=== PATIENT | female | born 1935 | race Caucasian/White ===

== ENCOUNTER 2017-01-21 06:24 | Inpatient (IN) | payer OTHER ==
[2016-12-27 14:06] LABS: BASO % 0.5 %; BASO ABS # 0.04 K/uL (0-0.2); COMPLETE YES; HEMATOCRIT 43.3 % (37-47); IG% 0.1 %; LYMPH % 25.7 %; LYMPH ABS # 1.87 K/uL (1.2-3.4); MEAN CELL VOLUME 93.7 fL (80-100); MEAN CORPUSCULAR HEMOGLOBIN 30.1 pg (25-34); MEAN CORPUSCULAR HGB CONC 32.1 g/dl (32-36); MEAN PLATELET VOLUME 8.6 fL (7.4-10.4); MONO % 5.4 %; NEUT % 65.3 %; PLATELET COUNT 244 K/uL (130-400); RED BLOOD COUNT 4.62 M/uL (4.2-5.4); WHITE BLOOD COUNT 7.28 K/uL (4.8-10.8)
[2016-12-27 14:19] VITALS: BMI 23.0
[2016-12-27 14:28] LABS: INR 1.9 (0.9-1.1); PARTIAL THROMBOPLASTIN RATIO 1.4; PROTHROMBIN TIME (PATIENT) 21.4 SECONDS (9.0-12.0)
--- NOTE | 2016-12-27 14:58 | PAT Medication Instructions ---
Service Date Dec 27, 2016. Current Home Medication List Amiodarone Hcl (Cordarone), 200 MG PO QAM Ascorbic Acid (Vitamin C), 1,000 MG PO BID Aspirin (Aspirin Ec), 81 MG PO QAM Bioflavonoid Products (Vitamin C Plus) Brimonidine Tartrate (Alphagan P Oph), 1 DROP OP BID Carvedilol (Coreg), 6.25 MG PO HS Cetirizine (Zyrtec), 10 MG PO QAM Cholecalciferol (Vitamin D3), 1 TAB PO QAM Ciprofloxacin Tab (Cipro), 250 MG PO BID PRN for UD Dorzolamide Hcl (Trusopt Oph), 1 DROPS OP BID Fentanyl (Duragesic), 1.5 TOP Q3DAYS Furosemide (Lasix), 80 MG PO QAM Furosemide (Lasix), 40 MG PO QPM Home O2 Therapy (Oxygen), 3 LITERS NA HS Ipratropium-Albuterol (Combivent Respimat), 1 PUFFS INH PRN Lactobacillus-Inulin (Culturelle), 1 TAB PO QAM Latanoprost (Xalatan 0.005% Oph Kaci), 1 DROPS OP HS Levothyroxine Sodium (Synthroid), 150 MCG PO QAM Nitroglycerin (Nitrostat), 0.4 MG UT PRN Oxycodone/Acetaminophen 7.5MG/325MG (Percocet 7.5MG/325MG), 1 TAB PO BID PRN for N Prednisone (Prednisone), 10 MG PO UD PRN for RN Warfarin Sodium (Coumadin), 5 MG PO 4XWEEK Warfarin Sodium (Coumadin), 2.5 MG PO 3XWEEK [Albuterol Neb], 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 Instructions For Your Scheduled Surgery - Continue as directed: Fentanyl (Duragesic), 1.5 TOP Q3DAYS - Continue as directed: Nitroglycerin (Nitrostat), 0.4 MG UT PRN Ciprofloxacin Tab (Cipro), 250 MG PO BID PRN for UD Prednisone (Prednisone), 10 MG PO UD PRN for RN - Hold the following medications 5 days prior to surgery as instructed by Cardiology: Warfarin Sodium (Coumadin), 5 MG PO 4XWEEK Warfarin Sodium (Coumadin), 2.5 MG PO 3XWEEK - Hold the following medications the morning of surgery: Cetirizine (Zyrtec), 10 MG PO QAM Ascorbic Acid (Vitamin C), 1,000 MG PO BID Lactobacillus-Inulin (Culturelle), 1 TAB PO QAM Cholecalciferol (Vitamin D3), 1 TAB PO QAM Furosemide (Lasix), 80 MG PO QAM Bioflavonoid Products (Vitamin C Plus) - Take the following medications the morning of surgery with a sip of water OTHERWISE NOTHING TO EAT OR DRINK AFTER MIDNIGHT: Aspirin (Aspirin Ec), 81 MG PO QAM Dorzolamide Hcl (Trusopt Oph), 1 DROPS OP BID Brimonidine Tartrate (Alphagan P Oph), 1 DROP OP BID Amiodarone Hcl (Cordarone), 200 MG PO QAM [Albuterol Neb], 1 DOSE INH QID PRN (use if needed; BRING TO HOSPITAL) Oxycodone/Acetaminophen 7.5MG/325MG (Percocet 7.5MG/325MG), 1 TAB PO BID PRN ( may take if needed up to 4 hours prior to surgery) Ipratropium-Albuterol (Combivent Respimat), 1 PUFFS INH PRN Levothyroxine Sodium (Synthroid), 150 MCG PO QAM - Take the following medications as scheduled the night before surgery: Latanoprost (Xalatan 0.005% Oph Kaci), 1 DROPS OP HS Carvedilol (Coreg), 6.25 MG PO HS Ascorbic Acid (Vitamin C), 1,000 MG PO BID Dorzolamide Hcl (Trusopt Oph), 1 DROPS OP BID Furosemide (Lasix), 40 MG PO QPM Brimonidine Tartrate (Alphagan P Oph), 1 DROP OP BID [Albuterol Neb], 1 DOSE INH QID PRN Oxycodone/Acetaminophen 7.5MG/325MG (Percocet 7.5MG/325MG), 1 TAB PO BID PRN for N Ipratropium-Albuterol (Combivent Respimat), 1 PUFFS INH PRN If you have any questions please call us at [phone] or [phone] or [phone]
[2016-12-27 15:08] LABS: BUN/CREATININE RATIO 14.5 (10-20); C-REACTIVE PROTEIN 0.41 mg/dl (0-0.29); CALCIUM 9.1 mg/dl (8.5-10.1); CREATININE 0.92 mg/dl (0.60-1.20); POTASSIUM 3.6 mmol/L (3.5-5.1)
--- NOTE | 2017-01-16 09:47 | History and Physical ---
History & Physical Date Jan 16, 2017. Chief Complaint Right Hip Pain. History of Present Illness The patient is a 81 year old female with complaints of right hip pain. Started after a fall 3 years ago. She has a non-displaced [place] fracture treated elsewhere. Despite tx, continues to have persistant and progressive pain. She never got off the cane. Mostly groin pain. She was scheduled for THR in past but cancelled due to illness. She would now like to proceed. Past Medical/Surgical History 1. Heart murmur 2. HTN 3. Cardiac stent placement - on coumadin 4. COPD 5. Hx of Pneumonia 6. LBP/Sciatica 7. Hypothyroidism 8. Smoking history 9. Cataract Susrgery 10.Choly 11.Hernia 12. Abdominal Surgery Additional History Hepatic Disease: No Endocrine Disorder: No Kidney Disease: No Hypertension: Yes Heart Disease: Yes Bleeding Tendencies: No Infectious Diseases: No Allergies Coded Allergies: Benazepril (Unverified Allergy, Unknown, HEADACHE,LOW BP, 12/27/16) Enalapril (Unverified Allergy, Unknown, DIZZY LOW BP, 12/27/16) Levofloxacin (Unverified Allergy, Unknown, MISCLE ACHES, 12/27/16) Lisinopril (Unverified Allergy, Unknown, BP GOES TOO LOW, 12/27/16) Statins (Unverified Allergy, Unknown, MUSCLE ACHES, 12/27/16) Home Medications Scheduled Amiodarone Hcl (Cordarone), 200 MG PO QAM Ascorbic Acid (Vitamin C), 1,000 MG PO BID Aspirin (Aspirin Ec), 81 MG PO QAM Brimonidine Tartrate (Alphagan P Oph), 1 DROP OP BID Carvedilol (Coreg), 6.25 MG PO HS Cetirizine (Zyrtec), 10 MG PO QAM Cholecalciferol (Vitamin D3), 1 TAB PO QAM Dorzolamide Hcl (Trusopt Oph), 1 DROPS OP BID Fentanyl (Duragesic), 1.5 TOP Q3DAYS Furosemide (Lasix), 80 MG PO QAM Furosemide (Lasix), 40 MG PO QPM Home O2 Therapy (Oxygen), 3 LITERS NA HS Ipratropium-Albuterol (Combivent Respimat), 1 PUFFS INH PRN Lactobacillus-Inulin (Culturelle), 1 TAB PO QAM Latanoprost (Xalatan 0.005% Oph Kaci), 1 DROPS OP HS Levothyroxine Sodium (Synthroid), 150 MCG PO QAM Nitroglycerin (Nitrostat), 0.4 MG UT PRN Warfarin Sodium (Coumadin), 5 MG PO 4XWEEK Warfarin Sodium (Coumadin), 2.5 MG PO 3XWEEK Scheduled PRN Ciprofloxacin Tab (Cipro), 250 MG PO BID PRN for UD Oxycodone/Acetaminophen 7.5MG/325MG (Percocet 7.5MG/325MG), 1 TAB PO BID PRN for N Prednisone (Prednisone), 10 MG PO UD PRN for RN [Albuterol Neb], 1 DOSE INH QID PRN for RN Miscellaneous Medications Bioflavonoid Products (Vitamin C Plus) Physical Examination Skin: warm/dry Eyes: normal inspection ENT: normal ENT inspection Head: normocephalic, atraumatic Neck: supple, no adenopathy Respiratory/Chest: lungs clear Cardiovascular: regular rate, rhythm Abdomen / GI: normal bowel sounds Back: normal inspection Extremities: normal inspection Neurologic/Psych: no motor/sensory deficits Addiitonal Comments: x-ray - Advanced Right HIp DJD Plan of Treatment Right THR
[~2017-01-21] VITALS: Ht 154.9 cm; Wt 56.3 kg
[2017-01-21] VITALS (17 sets, daily range): BP systolic 99–188; BP diastolic 53–81; PULSE 56–66; TEMP 36.4–36.9; O2SAT 92–99; Ht 154.9 cm; Wt 56.3 kg
[~2017-01-21 06:24] MED LIST: ACETAMINOPHEN 500 MG TAB PO SCH; ALBUTEROL NEB INH; AMIO200T4 PO; ASCA500 PO; ASPI81TA28 PO; BIOFTAB23; BRIM0.1S OP; CARV6.252 PO; CEFAZOLIN 2000 MG/60 ML D5W 60 ML IV SCH; CETI10TA84 PO; CHOL1000 PO; CIPR1TAB11 PO; DORZ2SOL17 OP; FAMOTIDINE 20 MG TAB PO SCH; FENT25DI10 TOP; FRS/40 PO; FURO80TA63 PO; GABAPENTIN 300 MG CAP PO SCH; IPRA1AER2 INH; LACT10CA3 PO; LACTATED RINGER'S 1000ML 1,000 ML IV SCH; LACTATED RINGER'S 1000ML IV SCH; LATA0.009 OP; LEVO150T PO; METOCLOPRAMIDE HCL 10 MG TAB PO SCH; NTRGSL/4 UT; OXGN; OXYC7.5T65 PO; PRED10TA PO; SCOPOLAMINE 1.5 MG TDSY TD SCH; TRANEXAMIC ACID INJ 1,000 MG in SODIUM CHLORIDE 0.9% 100ML 100 ML IV SCH; WARF5TAB90 PO
--- NOTE | 2017-01-21 06:51 | History & Physical Bridge Note ---
H&P Re-Evaluation Bridge Note: I have examined the patient, reviewed the History & Physical and in the interval since the performance of the History & Physical I have noted the following changes of clinical significance: No changes noted
[2017-01-21 07:08] LABS: INR 1.1 (0.9-1.1); PARTIAL THROMBOPLASTIN RATIO 1.1; PROTHROMBIN TIME (PATIENT) 11.4 SECONDS (9.0-12.0)
[2017-01-21] MEDS ORDERED: BUPIVACAINE 0.5 % 5 MG/1 ML PF 10ML VIAL ONE (07:14)
[2017-01-21] MEDS ORDERED: OXYC-57 PO (07:19)
[2017-01-21] MEDS ORDERED: PROPOFOL IV EMULSION 10 MG/ML 20 ML VIAL IV ONE (07:35)
[2017-01-21] MEDS ORDERED: MIDAZOLAM HCL 1 MG/ML 2ML VIAL ONE (07:35)
[2017-01-21] MEDS ORDERED: FENTANYL CITRATE INJ 50 MCG/1 ML 2 ML VIAL ONE (07:35)
[2017-01-21] MEDS ORDERED: MoRPHine SULFATE PF 1 MG/ML 10 ML AMP/VIAL ONE (08:29)
[2017-01-21] MEDS ORDERED: BACITRACIN 50000 UNIT VIAL ONE (08:59)
[2017-01-21] MEDS ORDERED: BUPIVACAINE/EPINEPHRINE 0.5% MPF 1:200,000 10 ML VIAL ONE (09:00)
[2017-01-21] MEDS ORDERED: EpHEDrine SULFATE 50MG/5ML SYR ONE (09:45)
[2017-01-21] MEDS ORDERED: ONDANSETRON INJ 2 MG/ML 2 ML VIAL ONE (09:45)
--- NOTE | 2017-01-21 11:02 | [facility] Post Operative Brief Note ---
Immediate Operative Summary Operative Date Jan 21, 2017. Pre-Operative Diagnosis Right Hip Advanced Degenerative Joint Disease Post-Operative Diagnosis Right Hip Advanced Degenerative Joint Disease Procedure(s) Performed Right Total Hip Arthroplasty--Cemented Stem Surgeon Dr. Eisenberg Enforcement Manager Surgeon(s) RASHAUN Valderrama Estimated Blood Loss 300 cc Findings Right Hip DJD Fluids (cc crystalloids) 1200 cc Specimens A. Right Femoral Head Drains None Anesthesia Spinal Complication(s) None Disposition Recovery Room / PACU
[2017-01-21] MEDS ORDERED: ATROPINE SULFATE 0.1 MG/ML 5ML SYR IV PRN (11:15)
[2017-01-21] MEDS ORDERED: BISACODYL 10 MG SUPP PR PRN (11:15)
[2017-01-21] MEDS ORDERED: NITROGLYCERIN 0.4 MG SL PER TAB CHARGE UT SCH (11:15)
[2017-01-21] MEDS ORDERED: ALUMINUM/MAGNESIUM/SIMETH (MAALOX MAX) 30 ML UDC PO PRN (11:15)
[2017-01-21] MEDS ORDERED: ONDANSETRON INJ 2 MG/ML 2 ML VIAL IV PRN ×2 (11:15→12:00)
[2017-01-21] MEDS ORDERED: ALBUTEROL 0.5% NEB SOLN 2.5 MG/0.5 ML VIAL INH PRN (11:15)
[2017-01-21] MEDS ORDERED: SILVER SULFADIAZINE 1% CR 50 GM JAR EXT PRN (11:15)
[2017-01-21] MEDS ORDERED: HYDROmorphone INJ 2 MG/ML SYR/VIAL IV PRN (11:15)
[2017-01-21] MEDS ORDERED: MAGNESIUM HYDROXIDE SUSP 30 ML UDC PO PRN (11:15)
[2017-01-21] MEDS ORDERED: PHENYLEPHRINE 100MCG/ML 5ML SYR IV PRN (11:15)
[2017-01-21] MEDS ORDERED: IPRATROPIUM BROMIDE/ALBUTEROL respimat INH INH PRN ×2 (11:15→21:00)
[2017-01-21] MEDS ORDERED: EpHEDrine SULFATE INJ 50 MG/ML AMP IV PRN ×2 (11:15→12:00)
[2017-01-21] MEDS ORDERED: NALOXONE HCL INJ 1 MG in SODIUM CHLORIDE 0.9% 1000ML 1,000 ML IV PRN (11:59)
[2017-01-21] MEDS ORDERED: LACTATED RINGER'S 1000ML 500 ML IV PRN (11:59)
[2017-01-21] MEDS ORDERED: SODIUM CHLORIDE 0.9% 1000ML 1,000 ML IV PRN (11:59)
[2017-01-21] MEDS ORDERED: NALOXONE HCL INJ 0.08 MG in SYRINGE 1.8 ML IV PRN (11:59)
[2017-01-21] MEDS ORDERED: MoRPHine SULFATE 2 MG/ML CARP IV PRN (12:00)
[2017-01-21] MEDS ORDERED: KETOROLAC TROMETHAMINE 15 MG/ML VIAL IV. PRN (12:00)
[2017-01-21] MEDS ORDERED: NALOXONE HCL 0.4 MG/1 ML VIAL/CARP IV PRN (12:00)
[2017-01-21] MEDS ORDERED: DiphenhydrAMINE HCL 50 MG/ML VIAL IV PRN (12:00)
[2017-01-21] MEDS ORDERED: NALBUPHINE HCL INJ 10 MG/ML AMP IV PRN (12:00)
[2017-01-21] MEDS ORDERED: NO NARCOTICS OR SEDATIVES SCH (12:00)
[2017-01-21] MEDS ORDERED: MoRPHine SULFATE PF 1 MG/ML 10 ML AMP/VIAL EPI PRN (12:00)
--- NOTE | 2017-01-21 12:01 | Anesthesiology Progress Note ---
Anesthesia Post Op Note Date & Time Jan 21, 2017 at 12:01 Vital Signs Pain Intensity: 0 Vital Signs Past 12 Hours Date Time Temp Pulse Resp B/P (MAP) Pulse Ox O2 Delivery O2 Flow Rate FiO2 01/21/17 11:53 55 13 01/21/17 11:53 55 13 94 01/21/17 11:51 135/60 01/21/17 11:48 57 14 01/21/17 11:48 58 14 93 01/21/17 11:47 131/62 01/21/17 11:44 36.9 56 18 131/62 (70) 94 Nasal Cannula 3 01/21/17 11:43 58 18 93 01/21/17 11:43 57 18 01/21/17 11:42 143/60 01/21/17 11:38 58 13 01/21/17 11:38 58 13 93 01/21/17 11:37 141/64 01/21/17 11:33 59 16 92 01/21/17 11:33 59 16 01/21/17 11:32 137/59 01/21/17 11:31 56 16 01/21/17 11:31 56 16 93 01/21/17 11:26 59 15 142/64 94 01/21/17 11:26 58 15 01/21/17 11:22 130/62 01/21/17 11:21 55 16 97 01/21/17 11:21 55 16 01/21/17 11:16 57 15 01/21/17 11:16 57 15 137/62 98 01/21/17 11:11 56 14 01/21/17 11:11 56 14 135/62 100 01/21/17 11:07 133/58 01/21/17 11:06 55 14 01/21/17 11:06 55 14 99 01/21/17 11:03 132/59 01/21/17 11:01 36.3 55 14 132/59 (74) 99 Nasal Cannula 10 01/21/17 07:15 36.6 66 18 188/81 96 Room Air Notes Mental Status: alert / awake / arousable, participated in evaluation Pt Amnestic to Procedure: Yes Nausea / Vomiting: adequately controlled Pain: adequately controlled Airway Patency, RR, SpO2: stable & adequate BP & HR: stable & adequate Hydration State: stable & adequate Anesthetic Complications: no major complications apparent
--- NOTE | 2017-01-21 12:03 | DIAGNOSTIC IMAGING REPORT ---
RIGHT PELVIS/UNILATERAL HIP 1 VIEW CLINICAL HISTORY: IN PACU - A/P PELVIS and LATERAL HIP INCLUDING ALL OF IMPLANT Right COMPARISON: None. DISCUSSION: Anatomic alignment status post total right hip arthroplasty. Good contact between prosthetic and underlying bone. No evidence for acetabular protrusion. Old fracture symphysis pubis. IMPRESSION: Anatomic alignment status post total right hip arthroplasty. The above report was generated using voice recognition software. It may contain grammatical, syntax or spelling errors. Electronically signed by: Branden Roach M.D. 01/21/2017 12:02 PM Dictated Date/Time: 01/21/2017 12:01 PM
--- NOTE | 2017-01-21 13:48 | Progress Note ---
Orthopedic SOAP Note Subjective Date of Service: Jan 21, 2017. Post OP Day: Post-op Right THR Reports: feeling well, pain controlled w PO medications Additional Notes: No pain. No chest Pain or SOB. Very hungry. Objective calves soft nontender, N/V intact, hip located, capillary refill less than 2 sec., dressing C/D/I, A&O x3, toes mobile, CMS intact Date Time Temp Pulse Resp B/P (MAP) Pulse Ox O2 Delivery O2 Flow Rate FiO2 01/21/17 13:30 36.9 63 18 142/75 (97) 99 Nasal Cannula 3.0 Humidified Oxygen 01/21/17 13:00 58 18 130/60 (83) 95 Nasal Cannula 3.0 Humidified Oxygen 01/21/17 12:30 36.8 56 16 129/60 (83) 97 Nasal Cannula 3.0 01/21/17 12:30 97 Nasal Cannula 3.0 01/21/17 12:30 Nasal Cannula 3.0 Humidified Oxygen 01/21/17 12:12 131/62 01/21/17 12:09 54 14 01/21/17 12:09 55 14 94 01/21/17 12:06 125/57 01/21/17 12:04 53 13 01/21/17 12:04 54 13 95 01/21/17 12:02 137/58 01/21/17 11:59 56 16 01/21/17 11:59 56 16 97 01/21/17 11:56 128/59 01/21/17 11:54 58 17 93 01/21/17 11:54 57 17 01/21/17 11:53 55 13 01/21/17 11:53 55 13 94 01/21/17 11:51 135/60 01/21/17 11:48 57 14 01/21/17 11:48 58 14 93 01/21/17 11:47 131/62 01/21/17 11:44 36.9 56 18 131/62 (70) 94 Nasal Cannula 3 01/21/17 11:43 58 18 93 01/21/17 11:43 57 18 01/21/17 11:42 143/60 01/21/17 11:38 58 13 01/21/17 11:38 58 13 93 01/21/17 11:37 141/64 01/21/17 11:33 59 16 92 01/21/17 11:33 59 16 01/21/17 11:32 137/59 01/21/17 11:31 56 16 01/21/17 11:31 56 16 93 01/21/17 11:26 59 15 142/64 94 01/21/17 11:26 58 15 01/21/17 11:22 130/62 01/21/17 11:21 55 16 97 01/21/17 11:21 55 16 01/21/17 11:16 57 15 01/21/17 11:16 57 15 137/62 98 01/21/17 11:11 56 14 01/21/17 11:11 56 14 135/62 100 01/21/17 11:07 133/58 01/21/17 11:06 55 14 01/21/17 11:06 55 14 99 01/21/17 11:03 132/59 01/21/17 11:01 36.3 55 14 132/59 (74) 99 Nasal Cannula 10 01/21/17 07:15 36.6 66 18 188/81 96 Room Air Laboratory Results 24 Hours: Test 01/21/17 06:48 Prothromb Time International Ratio 1.1 Prothrombin Time 11.4 SECONDS Additional Notes: X-ray from recovery room shows THR in good position. No problems. Assessment Pos-op from RIght THR. Hip located, pain controlled, and N/V intact. Plan 1) DVT prophylaxis - TEDs + SCDs + Coumadin 2. IV antibiotics x 24 hours. 3) Pain control - doing well with current regimine 4) PT/OT - Right THR protocol 5) Disposition - hoping to go to [facility] for Rehab once recovered.
[2017-01-21] MEDS: D5W AND 1/2NSS + 20MEQ KCL 1,000 ML IV SCH ×2 (14:28→23:34)
[2017-01-21] MEDS: HYDROCORTISONE IV 100 MG in SYRINGE 0 ML IV SCH ×2 (14:29→20:59)
[2017-01-21] MEDS ORDERED: ADVIN25/60 INH (14:55)
[2017-01-21] MEDS: CHECK SCOPOLAMINE PATCH PLACEMENT SCH ×2 (15:43→23:34)
[2017-01-21] MEDS ORDERED: WARFARIN SOD 7.5 MG TAB PO ONE (16:00)
[2017-01-21] MEDS: FUROSEMIDE 40 MG TAB PO SCH (17:09)
[2017-01-21] MEDS: FERROUS GLUCONATE 324 MG TAB PO SCH (17:09)
[2017-01-21] MEDS ORDERED: TRANEXAMIC ACID INJ 1,000 MG in SODIUM CHLORIDE 0.9% 100ML 100 ML IV ONE (17:30)
[2017-01-21] MEDS: FLUTICASONE/SALMETEROL 250/50 (ADVAIR) 14 PUFF/1 INHALER INH SCH (19:52)
[2017-01-21] MEDS: SENNA 8.6 MG TAB PO SCH (19:55)
[2017-01-21] MEDS: DOCUSATE SODIUM 100 MG CAP PO SCH (19:55)
[2017-01-21] MEDS: CARVEDILOL 6.25 MG TAB PO SCH (19:55)
[2017-01-21] MEDS: DORZOLAMIDE HCL 2% OPH SOLN 10 ML BTL OP SCH (19:57)
[2017-01-21] MEDS: BRIMONIDINE TARTRATE-P 0.15% 5 ML BTL OP SCH (19:57)
[2017-01-21] MEDS ORDERED: SPRIN INH (20:00)
[2017-01-21] MEDS: LATANOPROST 0.005% OP SOLN 2.5 ML BTL OP SCH (20:55)
[2017-01-21] MEDS: ASCORBIC ACID 500 MG TAB PO SCH (20:57)
[2017-01-21] MEDS: ACETAMINOPHEN 500 MG TAB PO SCH (20:58)
[2017-01-21] MEDS: CEFAZOLIN IV 1,000 MG in DEXTROSE 5% 50ML 50 ML IV SCH (20:59)
--- NOTE | 2017-01-21 22:17 | Medical Consult ---
Consultation Date of Consultation: Jan 21, 2017. Attending Physician: Jase Eisenberg M.D. Reason for Consultation: postop medical management History of Present Illness Patient seen and examined after undergoing R FLORENCIA by Dr. Eisenberg today. Patient reports she is doing well. She is eating lunch without issues. Denies any pain. She admits to chronic occasional productive cough which is unchanged from baseline. Denies dizziness, chest pain, SOB, N/V. Dickerson catheter is in place. Denies hx of VTE. Past Medical/Surgical History Medical Problems: (1) Back pain Status: Chronic (2) CAD (coronary artery disease) Status: Chronic (3) Chronic anticoagulation Status: Chronic (4) Chronic respiratory failure with hypoxia Status: Chronic (5) Chronic systolic CHF (congestive heart failure) Status: Chronic (6) COPD (chronic obstructive pulmonary disease) Status: Chronic (7) Dyslipidemia Permanent Comment: statin intolerance Status: Chronic (8) HTN (hypertension) Status: Chronic (9) Hypothyroidism Status: Chronic (10) Paroxysmal atrial fibrillation Status: Chronic (11) Tobacco abuse Status: Chronic Surgical Problems: (1) H/O inguinal hernia repair Status: Chronic (2) History of cataract surgery Status: Chronic (3) S/P appendectomy Status: Chronic (4) S/P coronary artery stent placement Status: Chronic (5) S/P laparoscopic cholecystectomy Status: Chronic (6) S/P right oophorectomy Status: Chronic (7) S/P tonsillectomy and adenoidectomy Status: Chronic Family History FH: CAD (coronary artery disease) MOTHER Hypertension MOTHER Social History Smoking Status: Current Every Day Smoker (1/2 ppd x 63 years) Alcohol Use: none Housing Status: lives alone Allergies Coded Allergies: Benazepril (Unverified Allergy, Unknown, HEADACHE,LOW BP, 01/21/17) Enalapril (Unverified Allergy, Unknown, DIZZY LOW BP, 01/21/17) Levofloxacin (Unverified Allergy, Unknown, MISCLE ACHES, 01/21/17) Lisinopril (Unverified Allergy, Unknown, BP GOES TOO LOW, 01/21/17) Statins (Unverified Allergy, Unknown, MUSCLE ACHES, 01/21/17) Home Medications Active Reported Spiriva Handihaler (Tiotropium [place]) 5 Puff/90 Mcg Aerp 1 Cap INH DAILY Advair Diskus 250/50 60 Dose (Fluticasone Prop/Salmeterol) 1 Ea Aerp 1 Puff INH BID Percocet 5MG/325MG (Oxycodone/Acetaminophen) Tab 1 Tab PO BID 30 Days PAIN Vitamin D3 (Cholecalciferol) 1,000 Unit Tab 1 Tab PO QAM 90 Days Nitrostat (Nitroglycerin) 0.4 Mg Tab 0.4 Mg UT PRN Aspirin Ec (Aspirin) 81 Mg Tab 81 Mg PO QAM Synthroid (Levothyroxine Sodium) 150 Mcg Tab 150 Mcg PO QAM Vitamin C (Ascorbic Acid) 500 Mg Tab 1,000 Mg PO BID Prednisone 10 Mg Tab 10 Mg PO UD PRN RESCUE KIT-PRN Cipro (Ciprofloxacin) 250 Mg Tab 250 Mg PO BID PRN RESCUE KIT PRN Lasix (Furosemide) 40 Mg Tab 40 Mg PO QPM Lasix (Furosemide) 80 Mg Tab 80 Mg PO QAM Coreg (Carvedilol) 6.25 Mg Tab 6.25 Mg PO HS Oxygen Gas 3 Liters NA HS PRN DURING DAY [Albuterol Neb] 1 Dose INH QID PRN Trusopt Oph (Dorzolamide Hcl) 2 % Kaci 1 Drops OP BID Alphagan P Oph (Brimonidine Tartrate) 0.1 % Kaci 1 Drop OP BID Xalatan 0.005% Oph Kaci (Latanoprost) 0.005 % Kaci 1 Drops OP HS 90 Days Cordarone (Amiodarone Hcl) 200 Mg Tab 200 Mg PO QAM Combivent Respimat (Ipratropium-Albuterol) 1 Aer Aer 1 Puffs INH QID PRN Coumadin (Warfarin Sodium) 5 Mg Tab 2.5 Mg PO 3XWEEK FridayDAY FRIDAYS Coumadin (Warfarin Sodium) 5 Mg Tab 5 Mg PO 4XWEEK FRIDAY,FRIDAY,Friday Current Inpatient Medications Current Inpatient Medications Medications (Trade) Dose Ordered Sig/Delaney Route Start Time Stop Time Status Last Admin Dose Admin Lactated Ringer's 1,000 ml @ 15 mls/hr Q24H IV 01/21/17 06:00 01/22/17 05:59 Lactated Ringer's 1,000 ml @ 60 mls/hr [id number] IV 01/21/17 06:00 01/21/17 22:39 01/21/17 07:31 60 MLS/HR Cefazolin Sodium 60 ml @ 100 mls/hr PREOP IV 01/21/17 06:00 01/21/17 18:00 Acetaminophen (Tylenol Tab) 1,000 mg PREOP PO 01/21/17 06:00 01/21/17 18:00 01/21/17 07:34 1,000 MG Famotidine (Pepcid Tab) 20 mg PREOP PO 01/21/17 06:00 01/21/17 18:00 01/21/17 07:33 20 MG Gabapentin (Neurontin Cap) 300 mg PREOP PO 01/21/17 06:00 01/21/17 18:00 01/21/17 07:31 300 MG Metoclopramide HCl (Reglan Tab) 10 mg PREOP PO 01/21/17 06:00 01/21/17 18:00 01/21/17 07:33 10 MG Miscellaneous (Remove Transderm-Scop Patch) 1 ea Q72H N/A 01/24/17 06:00 01/24/17 06:01 Miscellaneous Information (Check Scopolamine Patch Placement) 1 ea QS N/A 01/21/17 16:00 01/23/17 05:59 Hydromorphone HCl (Dilaudid Inj) 0.5 mg Q5M PRN IV 01/21/17 11:15 01/21/17 16:15 Ondansetron HCl (Zofran Inj) 4 mg ONE PRN IV 01/21/17 11:15 01/21/17 16:15 Ephedrine Sulfate (EpHEDrine SULFATE INJ) 5 mg Q5M PRN IV 01/21/17 11:15 01/21/17 16:15 Atropine Sulfate (Atropine Sulfate 0.1MG/Ml Inj) 0.5 mg Q1M PRN IV 01/21/17 11:15 01/21/17 16:15 Phenylephrine HCl (Arthur-Synephrine 500MCG/5ML Syr) 100 mcg Q5M PRN IV 01/21/17 11:15 01/21/17 16:15 Potassium Chloride/Dextrose/ Sod Cl 1,000 ml @ 100 mls/hr Q10H IV 01/21/17 14:00 01/22/17 13:59 01/21/17 14:28 100 MLS/HR Ketorolac Tromethamine (Toradol Inj) 15 mg Q6H IV. 01/22/17 04:00 01/23/17 22:01 Acetaminophen (Tylenol Tab) 1,000 mg Q8H PO 01/21/17 22:00 02/20/17 21:59 Magnesium Hydroxide (Milk Of Magnesia Susp) 30 ml Q6H PRN PO 01/21/17 11:15 02/20/17 11:14 Bisacodyl (Dulcolax Supp) 10 mg DAILY PRN DE 01/21/17 11:15 02/20/17 11:14 Senna (Senokot Tab) 17.2 mg HS PO 01/21/17 21:00 02/20/17 20:59 Docusate Sodium (coLACE CAP) 100 mg BID PO 01/21/17 21:00 02/20/17 20:59 Al Hydrox/Mg Hydrox/Simethicone (Maalox Max Susp) 15 ml Q4H PRN PO 01/21/17 11:15 02/20/17 11:14 Zolpidem Tartrate (Ambien Tab) 5 mg HSZ PRN PO 01/22/17 04:00 02/21/17 03:59 Multivitamins (Multivitamin Tab) 1 tab QAM PO 01/22/17 09:00 02/21/17 08:59 Ondansetron HCl (Zofran Inj) 4 mg Q6H PRN IV 01/22/17 04:00 02/21/17 03:59 Metoclopramide HCl (Reglan Inj) 10 mg Q6H PRN IV 01/22/17 04:00 02/21/17 03:59 Ferrous Gluconate (Ferrous Gluconate Tab) 324 mg TIDM PO 01/21/17 17:45 02/20/17 17:44 Pantoprazole Sodium (Protonix Tab) 40 mg QAM PO 01/22/17 09:00 02/21/17 08:59 Silver Sulfadiazine (Silvadene 1% Crm 50GM Jar) 1 appln BID PRN EXT 01/21/17 11:15 02/20/17 11:14 Tramadol HCl (Ultram Tab) 1 TABLET FOR PAIN RATING... Q4H PRN PO 01/22/17 04:00 02/21/17 03:59 Cefazolin Sodium 1000 mg/Dextrose 55 ml @ 100 mls/hr Q8H IV 01/21/17 22:00 01/22/17 06:32 Tranexamic Acid 1000 mg/Sodium Chloride 110 ml @ 660 mls/hr TODAY@1730 ONCE IV 01/21/17 17:30 01/21/17 17:39 Hydromorphone HCl (Dilaudid Inj) 0.5 mg Q1H PRN IV 01/22/17 04:00 02/05/17 03:59 Hydrocortisone Sodium Succinate 100 mg/Syringe 2 ml @ 4 mls/min Q8H IV 01/21/17 14:00 01/22/17 06:01 01/21/17 14:29 4 MLS/MIN Amiodarone HCl (Cordarone Tab) 200 mg QAM PO 01/22/17 09:00 02/21/17 08:59 Ascorbic Acid (Vitamin C Tab) 1,000 mg BID PO 01/21/17 21:00 02/20/17 20:59 Carvedilol (Coreg Tab) 6.25 mg HS PO 01/21/17 21:00 02/20/17 20:59 Cetirizine HCl (zyrTEC TAB) 10 mg QAM PO 01/22/17 09:00 02/21/17 08:59 Cholecalciferol (Vitamin D Tab) 1,000 inter.unit QAM PO 01/22/17 09:00 02/21/17 08:59 Dorzolamide HCl (Trusopt 2% Oph Soln) 1 drops BID OP 01/21/17 21:00 02/20/17 20:59 Furosemide (Lasix Tab) 40 mg DAILY@1700 PO 01/21/17 17:00 02/20/17 16:59 Furosemide (Lasix Tab) 80 mg QAM PO 01/22/17 09:00 02/21/17 08:59 Albuterol/ Ipratropium (Combivent Respimat Inh) 1 puffs DAILY PRN INH 01/21/17 11:15 02/20/17 11:14 Latanoprost (Xalatan Oph Soln) 1 drops HS OP 01/21/17 21:00 02/20/17 20:59 Levothyroxine Sodium (Synthroid Tab) 150 mcg DAILYBB PO 01/22/17 06:00 02/21/17 05:59 Nitroglycerin (Nitrostat Tab) 0.4 mg PRN UT 01/21/17 11:15 02/20/17 11:14 Prednisone (PredniSONE TAB) 10 mg DAILY PRN PO 01/21/17 11:15 02/20/17 11:14 Brimonidine Tartrate (Alphagan-P 0.15% Oph Soln) 1 drops BID OP 01/21/17 21:00 02/20/17 20:59 Albuterol Sulfate (Ventolin 0.5% 2.5MG/0.5ML Neb) 1 mg QIDR PRN INH 01/21/17 11:15 02/20/17 11:14 Warfarin Sodium (Coumadin Tab) 7.5 mg TODAY@1600 ONCE PO 01/21/17 16:00 01/21/17 16:01 Naloxone HCl (Narcan Inj) 0.1 mg UD PRN IV 01/21/17 12:00 01/22/17 04:00 Diphenhydramine HCl (Benadryl Inj) 25 mg Q6H PRN IV 01/21/17 12:00 01/22/17 04:00 Nalbuphine HCl (Nubain Inj) 5 mg Q10M PRN IV 01/21/17 12:00 01/22/17 04:00 Naloxone HCl 1 mg/ Sodium Chloride 1,002.5 ml @ 50 mls/hr Q20H3M PRN IV 01/21/17 11:59 01/22/17 04:00 Ondansetron HCl (Zofran Inj) 4 mg Q6H PRN IV 01/21/17 12:00 01/22/17 04:00 Ketorolac Tromethamine (Toradol Inj) 15 mg Q6H PRN IV. 01/21/17 12:00 01/22/17 04:00 Miscellaneous Information (Dc Intraspinal Morphine) 1 ea ONE N/A 01/22/17 04:00 01/22/17 04:01 Miscellaneous Information (No Narcotics Or Sedatives) 1 ea UD N/A 01/21/17 12:00 01/22/17 04:00 Naloxone HCl 0.08 mg/Syringe 2 ml @ 1 mls/min Q2M PRN IV 01/21/17 11:59 01/22/17 04:00 Morphine Sulfate (MoRPHine SULFATE INJ) 2 mg Q6H PRN IV 01/21/17 12:00 01/22/17 04:00 Lactated Ringer's 500 ml @ 999 mls/hr Q31M PRN IV 01/21/17 11:59 01/22/17 04:00 Ephedrine Sulfate (EpHEDrine SULFATE INJ) 10 mg Q5M PRN IV 01/21/17 12:00 01/22/17 04:00 Morphine Sulfate (Duramorph Pf Inj) TODAY PRN EPI 01/21/17 12:00 01/22/17 04:00 Sodium Chloride 1,000 ml @ 15 mls/hr Q24H PRN IV 01/21/17 11:59 01/22/17 04:00 Tiotropium [place] (Spiriva Handihaler Inhaler) 1 puff QAM INH 01/22/17 09:00 02/21/17 08:59 Salmeterol Xinafoate/ Fluticasone (Advair Diskus 250/50 Inh) 1 puff BID INH 01/21/17 21:00 02/20/17 20:59 Review of Systems Ten systems reviewed and negative except as noted in HPI. Physical Exam Date Time Temp Pulse Resp B/P (MAP) Pulse Ox O2 Delivery O2 Flow Rate FiO2 01/21/17 15:40 16 95 01/21/17 15:37 36.4 58 16 122/67 (85) 95 Humidified Oxygen 3.0 01/21/17 14:29 58 18 99/53 (68) 99 Nasal Cannula 3.0 Humidified Oxygen 01/21/17 14:28 18 99 01/21/17 13:30 36.9 63 18 142/75 (97) 99 Nasal Cannula 3.0 Humidified Oxygen 01/21/17 13:30 18 98 01/21/17 13:00 58 18 130/60 (83) 95 Nasal Cannula 3.0 Humidified Oxygen 01/21/17 12:30 36.8 56 16 129/60 (83) 97 Nasal Cannula 3.0 01/21/17 12:30 97 Nasal Cannula 3.0 01/21/17 12:30 Nasal Cannula 3.0 Humidified Oxygen 01/21/17 12:30 16 97 01/21/17 12:12 131/62 01/21/17 12:09 54 14 7/18/17 12:09 55 14 94 7/18/17 12:06 125/57 7/18/17 12:04 53 13 7/18/17 12:04 54 13 95 7/18/17 12:02 137/58 7/18/17 11:59 56 16 7/18/17 11:59 56 16 97 7/18/17 11:56 128/59 7/18/17 11:54 58 17 93 7/18/17 11:54 57 17 7/18/17 11:53 55 13 7/18/17 11:53 55 13 94 7/18/17 11:51 135/60 7/18/17 11:48 57 14 7/18/17 11:48 58 14 93 7/18/17 11:47 131/62 7/18/17 11:44 36.9 56 18 131/62 (70) 94 Nasal Cannula 3 718/17 11:43 58 18 93 7/18/17 11:43 57 18 7/18/17 11:42 143/60 7/18/17 11:38 58 13 7/18/17 11:38 58 13 93 7/18/17 11:37 141/64 7/18/17 11:33 59 16 92 7/18/17 11:33 59 16 7/18/17 11:32 137/59 7/18/17 11:31 56 16 7/18/17 11:31 56 16 93 7/18/17 11:26 59 15 142/64 94 7/18/17 11:26 58 15 7/18/17 11:22 130/62 7/18/17 11:21 55 16 97 7/18/17 11:21 55 16 7/18/17 11:16 57 15 7/18/17 11:16 57 15 137/62 98 7/18/17 11:11 56 14 7/18/17 11:11 56 14 135/62 100 7/18/17 11:07 133/58 7/18/17 11:06 55 14 7/18/17 11:06 55 14 99 7/18/17 11:03 132/59 7/18/17 11:01 36.3 55 14 132/59 (74) 99 Nasal Cannula 10 7/18/17 07:15 36.6 66 18 188/81 96 Room Air General Appearance: WD/WN, no apparent distress, + pertinent finding (pleasant alert 81 year old female, sitting up in bed eating lunch, son at bedside) Head: normocephalic, atraumatic Eyes: normal inspection ENT: hearing grossly normal Neck: supple, trachea midline Respiratory/Chest: lungs clear, normal breath sounds, no respiratory distress, no accessory muscle use Cardiovascular: regular rate, rhythm, no murmur Abdomen/GI: normal bowel sounds, non tender, soft Genitourinary - Female: + pertinent finding (dickerson catheter draining clear yellow urine) Extremities/Musculoskelatal: no calf tenderness, no pedal edema, + pertinent finding (dressing in place on right hip) Neurologic/Psych: alert, normal mood/affect, oriented x 3 Skin: normal color, warm/dry Laboratory Results Last 24 Hours Test 01/21/17 06:48 Prothrombin Time 11.4 SECONDS Prothromb Time International Ratio 1.1 Activated Partial Thromboplast Time 28.0 SECONDS Partial Thromboplastin Ratio 1.1 Assessment & Plan S/P RIGHT FLORENCIA POD #[address] Eisenberg Pain control, wound care, activity per ortho Monitor daily H/H for sign of acute blood loss anemia Incentive spirometry PT/OT PAROXYSMAL ATRIAL FIBRILLATION Currently in sinus rhythm Continue amiodarone and carvedilol Resume Coumadin when acceptable to ortho CHRONIC SYSTOLIC CHF Compensated Continue furosemide CAD S/P STENTING Stable, no anginal symptoms Continue aspirin and beta suly Statin intolerance noted COPD/ CHRONIC RESPIRATORY FAILURE Not in exacerbation Continue home inhalers Counselled about smoking cessation- patient not willing at this time DVT PROPHYLAXIS Per ortho DISPOSITION Per ortho Patient seen in collaboration with Dr. Hassan. Please see his addendum. Agree with above consult note. Briefly 81F is s/p right FLORENCIA. tolerated procedure ok. Denies chest pain or sob. No nausea. 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
[2017-01-22] VITALS (13 sets, daily range): BP systolic 106–159; BP diastolic 48–88; PULSE 52–67; TEMP 36.7–37.2; O2SAT 87–98
[2017-01-22] MEDS ORDERED: METOCLOPRAMIDE HCL INJ 5 MG/ML 2 ML VIAL IV PRN (04:00)
[2017-01-22] MEDS ORDERED: ONDANSETRON INJ 2 MG/ML 2 ML VIAL IV PRN (04:00)
[2017-01-22] MEDS ORDERED: HYDROmorphone INJ 0.5 MG/0.5 ML SYR IV PRN (04:00)
[2017-01-22] MEDS ORDERED: DC INTRASPINAL MORPHINE SCH (04:00)
[2017-01-22] MEDS ORDERED: ZOLPIDEM TARTRATE 5 MG TAB PO PRN (04:00)
[2017-01-22] MEDS: KETOROLAC TROMETHAMINE 15 MG/ML VIAL IV. SCH ×4 (04:21→21:31)
[2017-01-22] MEDS: TRAMADOL HCL 50 MG TAB PO PRN ×3 (04:37→21:27)
[2017-01-22 06:06] LABS: BASO % 0.2 %; BASO ABS # 0.02 K/uL (0-0.2); COMPLETE YES; EOS % 0.1 %; HEMATOCRIT 37.3 % (37-47); IG% 0.2 %; LYMPH % 8.3 %; MEAN CELL VOLUME 94.2 fL (80-100); MEAN CORPUSCULAR HEMOGLOBIN 28.5 pg (25-34); MEAN CORPUSCULAR HGB CONC 30.3 g/dl (32-36); MONO % 8.1 %; NEUT % 83.1 %; PLATELET COUNT 207 K/uL (130-400); RED BLOOD COUNT 3.96 M/uL (4.2-5.4); WHITE BLOOD COUNT 10.84 K/uL (4.8-10.8)
[2017-01-22 06:21] LABS: INR 1.1 (0.9-1.1); PROTHROMBIN TIME (PATIENT) 11.9 SECONDS (9.0-12.0)
[2017-01-22] MEDS: CEFAZOLIN IV 1,000 MG in DEXTROSE 5% 50ML 50 ML IV SCH (06:21)
[2017-01-22] MEDS: LEVOTHYROXINE 150 MCG TAB PO SCH (06:22)
[2017-01-22] MEDS: HYDROCORTISONE IV 100 MG in SYRINGE 0 ML IV SCH (06:22)
[2017-01-22] MEDS: ACETAMINOPHEN 500 MG TAB PO SCH ×3 (06:22→21:31)
[2017-01-22 06:41] LABS: BUN/CREATININE RATIO 14.9 (10-20); CREATININE 0.91 mg/dl (0.60-1.20); POTASSIUM 3.4 mmol/L (3.5-5.1)
[2017-01-22] MEDS: CHECK SCOPOLAMINE PATCH PLACEMENT SCH ×3 (07:45→23:55)
--- NOTE | 2017-01-22 07:56 | Anesthesiology Progress Note ---
Anesthesia Post Op Note Date & Time Jan 22, 2017 at 07:56 Vital Signs Pain Intensity: 4.0 Vital Signs Past 12 Hours Date Time Temp Pulse Resp B/P (MAP) Pulse Ox O2 Delivery O2 Flow Rate FiO2 01/22/17 07:44 98 Room Air 01/22/17 07:44 37.2 14 154/70 (98) 98 Room Air 01/22/17 04:23 37.0 57 18 153/48 (83) 98 Nasal Cannula 3.0 Humidified Oxygen 01/22/17 03:36 16 98 01/22/17 02:30 18 94 01/22/17 01:29 18 97 01/22/17 00:35 18 95 01/21/17 23:42 Nasal Cannula 3.0 01/21/17 23:30 18 96 01/21/17 22:46 36.7 61 18 169/74 (105) 96 Nasal Cannula 3.0 Humidified Oxygen 01/21/17 21:30 18 94 01/21/17 20:30 18 94 Notes Mental Status: alert / awake / arousable, participated in evaluation Pt Amnestic to Procedure: Yes Nausea / Vomiting: adequately controlled Pain: adequately controlled Airway Patency, RR, SpO2: stable & adequate BP & HR: stable & adequate Hydration State: stable & adequate Anesthetic Complications: no major complications apparent
--- NOTE | 2017-01-22 08:13 | Progress Note ---
Orthopedic SOAP Note Subjective Date of Service: Jan 22, 2017. Post OP Day: POD #1 - Right THR Reports: feeling well Additional Notes: Feeling a bit more pain today. No chest pain or SOB. A little shaky first time she got up. Better next time. Objective calves soft nontender, N/V intact, hip located, capillary refill less than 2 sec., dressing C/D/I, A&O x3, toes mobile, CMS intact Date Time Temp Pulse Resp B/P (MAP) Pulse Ox O2 Delivery O2 Flow Rate FiO2 01/22/17 07:44 98 Room Air 01/22/17 07:44 37.2 14 154/70 (98) 98 Room Air 01/22/17 04:23 37.0 57 18 153/48 (83) 98 Nasal Cannula 3.0 Humidified Oxygen 01/22/17 03:36 16 98 01/22/17 02:30 18 94 01/22/17 01:29 18 97 01/22/17 00:35 18 95 01/21/17 23:42 Nasal Cannula 3.0 01/21/17 23:30 18 96 01/21/17 22:46 36.7 61 18 169/74 (105) 96 Nasal Cannula 3.0 Humidified Oxygen 01/21/17 21:30 18 94 01/21/17 20:30 18 94 01/21/17 19:35 18 97 01/21/17 19:32 36.6 65 18 185/65 (105) 97 Nasal Cannula 3.0 01/21/17 18:31 18 92 01/21/17 17:30 18 95 01/21/17 16:30 18 98 01/21/17 15:40 Nasal Cannula 3.0 Humidified Oxygen 01/21/17 15:40 16 95 01/21/17 15:37 36.4 58 16 122/67 (85) 95 Humidified Oxygen 3.0 01/21/17 14:29 58 18 99/53 (68) 99 Nasal Cannula 3.0 Humidified Oxygen 01/21/17 14:28 18 99 01/21/17 13:30 36.9 63 18 142/75 (97) 99 Nasal Cannula 3.0 Humidified Oxygen 01/21/17 13:30 18 98 01/21/17 13:00 58 18 130/60 (83) 95 Nasal Cannula 3.0 Humidified Oxygen 7/18/17 12:30 36.8 56 16 129/60 (83) 97 Nasal Cannula 3.0 7/18/17 12:30 97 Nasal Cannula 3.0 7/18/17 12:30 Nasal Cannula 3.0 Humidified Oxygen 18/17 12:30 16 97 7/18/17 12:12 131/62 7/18/17 12:09 54 14 7/18/17 12:09 55 14 94 7/18/17 12:06 125/57 718/17 12:04 53 13 7/18/17 12:04 54 13 95 18/17 12:02 137/58 718/17 11:59 56 16 7/18/17 11:59 56 16 97 /18/17 11:56 128/59 18/17 11:54 58 17 93 7/18/17 11:54 57 17 7/18/17 11:53 55 13 7/18/17 11:53 55 13 94 7/18/17 11:51 135/60 718/17 11:48 57 14 7/18/17 11:48 58 14 93 7/18/17 11:47 131/62 18/17 11:44 36.9 56 18 131/62 (70) 94 Nasal Cannula 3 18/17 11:43 58 18 93 7/18/17 11:43 57 18 7/18/17 11:42 143/60 7/18/17 11:38 58 13 7/18/17 11:38 58 13 93 7/18/17 11:37 141/64 7/18/17 11:33 59 16 92 7/18/17 11:33 59 16 7/18/17 11:32 137/59 7/18/17 11:31 56 16 7/18/17 11:31 56 16 93 7/18/17 11:26 59 15 142/64 94 7/18/17 11:26 58 15 7/18/17 11:22 130/62 7/18/17 11:21 55 16 97 7/18/17 11:21 55 16 7/18/17 11:16 57 15 7/18/17 11:16 57 15 137/62 98 7/18/17 11:11 56 14 7/18/17 11:11 56 14 135/62 100 /18/17 11:07 133/58 01/21/17 11:06 55 14 01/21/17 11:06 55 14 99 01/21/17 11:03 132/59 01/21/17 11:01 36.3 55 14 132/59 (74) 99 Nasal Cannula 10 Laboratory Results 24 Hours: Test 01/22/17 05:28 White Blood Count 10.84 K/uL Red Blood Count 3.96 M/uL Hemoglobin 11.3 g/dL Hematocrit 37.3 % Mean Corpuscular Volume 94.2 fL Mean Corpuscular Hemoglobin 28.5 pg Mean Corpuscular Hemoglobin Concent 30.3 g/dl Platelet Count 207 K/uL Mean Platelet Volume 9.0 fL Neutrophils (%) (Auto) 83.1 % Lymphocytes (%) (Auto) 8.3 % Monocytes (%) (Auto) 8.1 % Eosinophils (%) (Auto) 0.1 % Basophils (%) (Auto) 0.2 % Neutrophils # (Auto) 9.01 K/uL Lymphocytes # (Auto) 0.90 K/uL Monocytes # (Auto) 0.88 K/uL Eosinophils # (Auto) 0.01 K/uL Basophils # (Auto) 0.02 K/uL Prothromb Time International Ratio 1.1 Prothrombin Time 11.9 SECONDS Assessment Pos-op from RIght THR. Hip located, pain controlled, and N/V intact. Plan 1) DVT prophylaxis - TEDs + SCDs + Coumadin 2) IV antibiotics x 24 hours. 3) Pain control - doing well with current regimine 4) PT/OT - Right THR protocol 5) Disposition - hoping to go to [facility] for Rehab once recovered.
[2017-01-22] MEDS ORDERED: ULT50X PO (08:18)
[2017-01-22] MEDS ORDERED: ACET-24 PO (08:18)
--- NOTE | 2017-01-22 08:21 | Discharge Instructions ---
Discharge Instructions Date of Service Jan 22, 2017. Admission Reason for Admission: Right Hip Degenerative Joint Disease Discharge Discharge Diagnosis / Problem: Right Hip Replacement Discharge Goals Goal(s): Decrease discomfort, Improve function, Increase independence, Improve disease control, Therapeutic intervention Activity Recommendations Activity Level: Assistance Required (Total Hip Precautions) Therapies: Physical Therapy, Occupational Therapy Weightbearing Status: Right weightbearing . Additional Information Patient informed of condition: Yes Advance Directives: No DNR: No Level of Care: Acute Rehab Communicable Disease: No Prognosis: Improving Instructions / Follow-Up Instructions / Follow-Up ACTIVITY RECOMMENDATIONS: Physical Therapy: * Aggressive physical therapy is not usually needed. You will learn to take care of yourself safely and walk. * Follow the "Hip Precautions Instructions." * In some cases, the social insurance adviser at the hospital will arrange to have a therapist come to your house for the first couple of weeks to help you learn these skills. * You need to practice on your own or with the help of a family member as needed. * When you learn these skills, most of the therapy can be done on your own. Home Exercise: * You were shown a series of exercises in the hospital. Do these exercises three to four times each day including the exercises you were shown in physical therapy. Walking: * Get up and walk several times each day. For the first four weeks, try not to stand or walk for more than one hour at a time. If you do stand or walk for more than one hour, you will not hurt anything, but your leg will likely swell. * As you feel comfortable, you may change from the walker or crutches to a cane and then to independent walking. MEDICATIONS: New Medicine: * You will likely be taking one or more of these medicines: 1. Tramadol - Take, as directed, when you need it, every four to six hours to control your pain. 2. Coumadin - Thins your blood to lessen the chance of forming a blood clot. The dose of this is different for each person and is based on your blood tests that are done every Friday and . * The most common side effects of pain medicine and iron are nausea and constipation. If nausea or constipation is too much of a problem or if you have any questions about your new medicines or doses, call [facility] at [phone]. We will try to help you manage these issues. VERY IMPORTANT TO READ AND REVIEW" Pain: * The immediate post-operative period after hip replacement surgery is often quite painful. * You are given a prescription for pain medicine. You should take it, as directed, when you need it, especially before physical therapy and before going to bed. Pain that interferes with sleep is very common and can last several months. * You will likely need pain medicine for the first two to four weeks. It will not stop all of the pain. The pain will lessen and as you feel better, you may change to milder pain medicine such as Tylenol. * The most common side effects of pain medicine are nausea and constipation, so don't take more than you need. SPECIAL CARE INSTRUCTIONS: TEDs/Elastic Stockings: * The white elastic stockings help limit swelling and prevent blood clots from forming in your legs. The more you wear them, the more they work. * Wear them for six weeks. Prevention of Infection: * Take antibiotics one hour before any dental cleaning, dental work, urological procedure, gastrointestinal procedure or any invasive surgery in order to prevent your new joint from getting infected. * You may get the antibiotics from the doctor performing the procedure or you may call our office at before and we will call in a prescription to the pharmacy of your choice. Things to Watch For: * Drainage from the incision site that occurs more than one week after your surgery. * Severely increased leg pain or swelling. * Increased redness at the incision site. * Fever above 102 degrees Fahrenheit. * Unusual chest pain or shortness of breath. * Unusual pain or burning with urination. Call [facility] at with any of the above problems or if you have any questions about your medicines or recovery. FOLLOW UP VISIT: Make an appointment to see your doctor for approximately two weeks after surgery for a progress check and staple removal by calling the office at . Current Hospital Diet Patient's current hospital diet: Regular Diet Discharge Diet Recommended Diet: Regular Diet Procedures Procedures Performed: Right Total Hip Arthroplasty--Cemented Stem Pending Studies Studies pending at discharge: no Medical Emergencies . Who to Call and When: Medical Emergencies: If at any time you feel your situation is an emergency, please call [phone] immediately. . Non-Emergent Contact Non-Emergency issues call your: Surgeon . . "Provider Documentation" section prepared by Jase Eisenberg. . Core Measure Problem Core Measures: None
[2017-01-22] MEDS ORDERED: POTASSIUM CHLORIDE 20 MEQ TABCR PO ONE (08:30)
[2017-01-22] MEDS ORDERED: NURSING VERBAL MED ORDER ONE (08:30)
[2017-01-22] MEDS: FLUTICASONE/SALMETEROL 250/50 (ADVAIR) 14 PUFF/1 INHALER INH SCH ×2 (08:40→21:26)
[2017-01-22] MEDS: TIOTROPIUM BROMIDE 5 PUFF/90 MCG INH INH SCH (08:40)
[2017-01-22] MEDS: FUROSEMIDE 80 MG TAB PO SCH (08:41)
[2017-01-22] MEDS: MULTIVITAMIN TAB PO SCH (08:41)
[2017-01-22] MEDS: PANTOprazole SOD 40 MG TAB PO SCH (08:41)
[2017-01-22] MEDS: DOCUSATE SODIUM 100 MG CAP PO SCH ×2 (08:42→21:29)
[2017-01-22] MEDS: AMIODARONE 200 MG TAB PO SCH (08:42)
[2017-01-22] MEDS: FERROUS GLUCONATE 324 MG TAB PO SCH ×3 (08:42→17:42)
[2017-01-22] MEDS: ASCORBIC ACID 500 MG TAB PO SCH ×2 (08:42→21:30)
[2017-01-22] MEDS: CHOLECALCIFEROL 1000 INTER.UNIT TAB PO SCH (08:43)
[2017-01-22] MEDS: BRIMONIDINE TARTRATE-P 0.15% 5 ML BTL OP SCH ×2 (08:43→21:26)
[2017-01-22] MEDS: CETIRIZINE HCL 10 MG TAB PO SCH (08:43)
[2017-01-22] MEDS: DORZOLAMIDE HCL 2% OPH SOLN 10 ML BTL OP SCH ×2 (08:44→21:27)
[2017-01-22] MEDS ORDERED: WARFARIN SOD 5 MG TAB PO ONE (16:00)
[2017-01-22] MEDS: FUROSEMIDE 40 MG TAB PO SCH (17:43)
--- NOTE | 2017-01-22 18:42 | Progress Note ---
Medicine Progress Note Date & Time of Visit: Jan 22, 2017 at 18:37. Subjective Pt was seen and examined Very pleasant, Sitting in chair with no distress denies any chest pain, palpitation and sob. Objective Last 8 Hrs Date Time Temp Pulse Resp B/P (MAP) Pulse Ox O2 Delivery O2 Flow Rate FiO2 01/22/17 17:45 159/72 (101) 01/22/17 15:00 36.8 63 18 129/62 (84) 91 Humidified Air 2.0 01/22/17 12:45 67 87 01/22/17 12:00 94 Nasal Cannula 2.0 01/22/17 11:50 36.7 65 16 106/64 (78) 88 Room Air Physical Exam: General- no acute distress Head- atraumatic Eyes- PERRL, EOMI ENT- oropharynx clear Neck- supple, no JVD Lungs- clear to auscultation Heart- regular rhyth Abdomen- normal bowel sounds, soft Extremities- no calf tenderness Neuro- alert, oriented x 3; PERRL, EOMI Skin- warm & dry Laboratory Results: Last 24 Hours Test 01/22/17 05:28 White Blood Count 10.84 K/uL Red Blood Count 3.96 M/uL Hemoglobin 11.3 g/dL Hematocrit 37.3 % Mean Corpuscular Volume 94.2 fL Mean Corpuscular Hemoglobin 28.5 pg Mean Corpuscular Hemoglobin Concent 30.3 g/dl Platelet Count 207 K/uL Mean Platelet Volume 9.0 fL Neutrophils (%) (Auto) 83.1 % Lymphocytes (%) (Auto) 8.3 % Monocytes (%) (Auto) 8.1 % Eosinophils (%) (Auto) 0.1 % Basophils (%) (Auto) 0.2 % Neutrophils # (Auto) 9.01 K/uL Lymphocytes # (Auto) 0.90 K/uL Monocytes # (Auto) 0.88 K/uL Eosinophils # (Auto) 0.01 K/uL Basophils # (Auto) 0.02 K/uL RDW Standard Deviation 46.5 fL RDW Coefficient of Variation 13.4 % Immature Granulocyte % (Auto) 0.2 % Immature Granulocyte # (Auto) 0.02 K/uL Prothrombin Time 11.9 SECONDS Prothromb Time International Ratio 1.1 Sodium Level 141 mmol/L Potassium Level 3.4 mmol/L Chloride Level 104 mmol/L Carbon Dioxide Level 36 mmol/L Anion Gap 1.0 mmol/L Blood Urea Nitrogen 14 mg/dl Creatinine 0.91 mg/dl Est Creatinine Clear Calc Drug Dose 37.8 ml/min Estimated GFR () 69.5 Estimated GFR (Non- 60.0 BUN/Creatinine Ratio 14.9 Random Glucose 137 mg/dl Calcium Level 8.0 mg/dl Assessment & Plan S/P RIGHT FLORENCIA POD #[address] Eisenberg continue Pain control hgb stable monitor h/h Incentive spirometry PT/OT PAROXYSMAL ATRIAL FIBRILLATION Currently in sinus rhythm Continue amiodarone and carvedilol Coumadin resumed today CHRONIC SYSTOLIC CHF Compensated Continue furosemide stable CAD S/P STENTING Asymptomatic Continue aspirin and beta suly COPD/ CHRONIC RESPIRATORY FAILURE Not in exacerbation Continue home inhalers stable TOBACCO ABUSE Counseling on smoking cessation DVT PROPHYLAXIS Per ortho CODE STATUS FULL CODE Current Inpatient Medications: Current Inpatient Medications Medications (Trade) Dose Ordered Sig/Delaney Route Start Time Stop Time Status Last Admin Dose Admin Miscellaneous (Remove Transderm-Scop Patch) 1 ea Q72H N/A 01/24/17 06:00 01/24/17 06:01 Miscellaneous Information (Check Scopolamine Patch Placement) 1 ea QS N/A 01/21/17 16:00 01/23/17 05:59 01/22/17 15:28 1 EA Ketorolac Tromethamine (Toradol Inj) 15 mg Q6H IV. 01/22/17 04:00 01/23/17 22:01 01/22/17 15:31 15 MG Acetaminophen (Tylenol Tab) 1,000 mg Q8H PO 01/21/17 22:00 02/20/17 21:59 01/22/17 14:07 1,000 MG Magnesium Hydroxide (Milk Of Magnesia Susp) 30 ml Q6H PRN PO 01/21/17 11:15 02/20/17 11:14 Bisacodyl (Dulcolax Supp) 10 mg DAILY PRN MT 01/21/17 11:15 02/20/17 11:14 Senna (Senokot Tab) 17.2 mg HS PO 01/21/17 21:00 02/20/17 20:59 01/21/17 19:55 17.2 MG Docusate Sodium (coLACE CAP) 100 mg BID PO 01/21/17 21:00 02/20/17 20:59 01/22/17 08:42 100 MG Al Hydrox/Mg Hydrox/Simethicone (Maalox Max Susp) 15 ml Q4H PRN PO 01/21/17 11:15 02/20/17 11:14 Zolpidem Tartrate (Ambien Tab) 5 mg HSZ PRN PO 01/22/17 04:00 02/21/17 03:59 Multivitamins (Multivitamin Tab) 1 tab QAM PO 01/22/17 09:00 02/21/17 08:59 01/22/17 08:41 1 TAB Ondansetron HCl (Zofran Inj) 4 mg Q6H PRN IV 01/22/17 04:00 02/21/17 03:59 Metoclopramide HCl (Reglan Inj) 10 mg Q6H PRN IV 01/22/17 04:00 02/21/17 03:59 Ferrous Gluconate (Ferrous Gluconate Tab) 324 mg TIDM PO 01/21/17 17:45 02/20/17 17:44 01/22/17 17:42 324 MG Pantoprazole Sodium (Protonix Tab) 40 mg QAM PO 01/22/17 09:00 02/21/17 08:59 01/22/17 08:41 40 MG Silver Sulfadiazine (Silvadene 1% Crm 50GM Jar) 1 appln BID PRN EXT 01/21/17 11:15 02/20/17 11:14 Tramadol HCl (Ultram Tab) 1 TABLET FOR PAIN RATING... Q4H PRN PO 01/22/17 04:00 02/21/17 03:59 01/22/17 08:49 100 MG Hydromorphone HCl (Dilaudid Inj) 0.5 mg Q1H PRN IV 01/22/17 04:00 02/05/17 03:59 Amiodarone HCl (Cordarone Tab) 200 mg QAM PO 01/22/17 09:00 02/21/17 08:59 01/22/17 08:42 200 MG Ascorbic Acid (Vitamin C Tab) 1,000 mg BID PO 01/21/17 21:00 02/20/17 20:59 01/22/17 08:42 1,000 MG Carvedilol (Coreg Tab) 6.25 mg HS PO 01/21/17 21:00 02/20/17 20:59 01/21/17 19:55 6.25 MG Cetirizine HCl (zyrTEC TAB) 10 mg QAM PO 01/22/17 09:00 02/21/17 08:59 01/22/17 08:43 10 MG Cholecalciferol (Vitamin D Tab) 1,000 inter.unit QAM PO 01/22/17 09:00 02/21/17 08:59 01/22/17 08:43 1,000 INTER.UNIT Dorzolamide HCl (Trusopt 2% Oph Soln) 1 drops BID OP 01/21/17 21:00 02/20/17 20:59 01/22/17 08:44 1 DROPS Furosemide (Lasix Tab) 40 mg DAILY@1700 PO 01/21/17 17:00 02/20/17 16:59 01/22/17 17:43 40 MG Furosemide (Lasix Tab) 80 mg QAM PO 01/22/17 09:00 02/21/17 08:59 01/22/17 08:41 80 MG Latanoprost (Xalatan Oph Soln) 1 drops HS OP 01/21/17 21:00 02/20/17 20:59 01/21/17 20:55 1 DROPS Levothyroxine Sodium (Synthroid Tab) 150 mcg DAILYBB PO 01/22/17 06:00 02/21/17 05:59 01/22/17 06:22 150 MCG Nitroglycerin (Nitrostat Tab) 0.4 mg PRN UT 01/21/17 11:15 02/20/17 11:14 Prednisone (PredniSONE TAB) 10 mg DAILY PRN PO 01/21/17 11:15 02/20/17 11:14 Brimonidine Tartrate (Alphagan-P 0.15% Oph Soln) 1 drops BID OP 01/21/17 21:00 02/20/17 20:59 01/22/17 08:43 1 DROPS Albuterol Sulfate (Ventolin 0.5% 2.5MG/0.5ML Neb) 1 mg QIDR PRN INH 01/21/17 11:15 02/20/17 11:14 Tiotropium [place] (Spiriva Handihaler Inhaler) 1 puff QAM INH 01/22/17 09:00 02/21/17 08:59 01/22/17 08:40 1 PUFF Salmeterol Xinafoate/ Fluticasone (Advair Diskus 250/50 Inh) 1 puff BID INH 01/21/17 21:00 02/20/17 20:59 01/22/17 08:40 1 PUFF Albuterol/ Ipratropium (Combivent Respimat Inh) 1 puffs QIDR PRN INH 01/21/17 21:00 02/20/17 20:59
[2017-01-22] MEDS: LATANOPROST 0.005% OP SOLN 2.5 ML BTL OP SCH (21:26)
[2017-01-22] MEDS: CARVEDILOL 6.25 MG TAB PO SCH (21:28)
[2017-01-22] MEDS: SENNA 8.6 MG TAB PO SCH (21:29)
[2017-01-23] MEDS: KETOROLAC TROMETHAMINE 15 MG/ML VIAL IV. SCH ×3 (04:26→16:07)
[2017-01-23 06:05] LABS: INR 1.5 (0.9-1.1); PROTHROMBIN TIME (PATIENT) 16.6 SECONDS (9.0-12.0)
[2017-01-23] MEDS: LEVOTHYROXINE 150 MCG TAB PO SCH (06:07)
[2017-01-23] MEDS: ACETAMINOPHEN 500 MG TAB PO SCH ×2 (06:08→14:02)
--- NOTE | 2017-01-23 07:31 | Progress Note ---
Orthopedic SOAP Note Subjective Date of Service: Jan 23, 2017. Post OP Day: POD #2 - R THR Reports: feeling well, pain controlled w PO medications Objective calves soft nontender, N/V intact, hip located, capillary refill less than 2 sec., dressing C/D/I, incision C/D/I, A&O x3, toes mobile, CMS intact Date Time Temp Pulse Resp B/P (MAP) Pulse Ox O2 Delivery O2 Flow Rate FiO2 01/22/17 23:55 Nasal Cannula 2.0 01/22/17 23:25 36.7 57 18 114/62 (79) 96 Nasal Cannula 2.0 01/22/17 21:21 66 118/57 (77) 01/22/17 17:45 159/72 (101) 01/22/17 16:00 Nasal Cannula 3.0 Humidified Air 01/22/17 15:00 36.8 63 18 129/62 (84) 91 Humidified Air 2.0 01/22/17 12:45 67 87 01/22/17 12:00 94 Nasal Cannula 2.0 01/22/17 11:50 36.7 65 16 106/64 (78) 88 Room Air 01/22/17 07:44 98 Room Air 01/22/17 07:44 37.2 52 14 154/70 (98) 98 Room Air 01/22/17 07:35 Nasal Cannula 3.0 Humidified Oxygen Laboratory Results 24 Hours: Test 01/23/17 04:55 Prothromb Time International Ratio 1.5 Prothrombin Time 16.6 SECONDS Assessment Pos-op Day #2 from RIght THR. Hip located, pain controlled, and N/V intact. Plan 1) DVT prophylaxis - TEDs + SCDs + Coumadin 2) IV antibiotics x 24 hours. Completed 3) Pain control - doing well with current regimine 4) PT/OT - Right THR protocol 5) Disposition - hoping to go to [facility] for Rehab once recovered.
[2017-01-23 07:39] VITALS: BP 144/72; PULSE 60; TEMP 36.8; O2SAT 95
[2017-01-23 07:40] VITALS: O2SAT 95
[2017-01-23] MEDS: ASCORBIC ACID 500 MG TAB PO SCH (09:00)
[2017-01-23] MEDS: CETIRIZINE HCL 10 MG TAB PO SCH (09:00)
[2017-01-23] MEDS: PANTOprazole SOD 40 MG TAB PO SCH (09:00)
[2017-01-23] MEDS: FUROSEMIDE 80 MG TAB PO SCH (09:01)
[2017-01-23] MEDS: AMIODARONE 200 MG TAB PO SCH (09:01)
[2017-01-23] MEDS: DOCUSATE SODIUM 100 MG CAP PO SCH (09:01)
[2017-01-23] MEDS: FERROUS GLUCONATE 324 MG TAB PO SCH ×2 (09:01→13:15)
[2017-01-23] MEDS: CHOLECALCIFEROL 1000 INTER.UNIT TAB PO SCH (09:01)
[2017-01-23] MEDS: TIOTROPIUM BROMIDE 5 PUFF/90 MCG INH INH SCH (09:01)
[2017-01-23] MEDS: MULTIVITAMIN TAB PO SCH (09:01)
[2017-01-23] MEDS: FLUTICASONE/SALMETEROL 250/50 (ADVAIR) 14 PUFF/1 INHALER INH SCH (09:02)
[2017-01-23] MEDS: DORZOLAMIDE HCL 2% OPH SOLN 10 ML BTL OP SCH (09:02)
[2017-01-23] MEDS: BRIMONIDINE TARTRATE-P 0.15% 5 ML BTL OP SCH (09:02)
[2017-01-23] MEDS: TRAMADOL HCL 50 MG TAB PO PRN ×2 (09:06→16:07)
[2017-01-23 12:02] VITALS: BP 126/72; PULSE 60; TEMP 36.5; O2SAT 90
[2017-01-23 15:16] VITALS: BP 130/69; PULSE 58; TEMP 36.6; O2SAT 90
[2017-01-23] MEDS ORDERED: WARFARIN SOD 3 MG TAB PO ONE (16:00)
--- NOTE | 2017-01-30 16:18 | DISCHARGE SUMMARY ---
ADMITTING PHYSICIAN AND SURGEON: Dr. Eisenberg. ADMITTING DIAGNOSIS: Right hip degenerative joint disease. SURGERY PERFORMED: Right total hip arthroplasty. SECONDARY DIAGNOSES: Include heart murmur, hypertension, cardiac stent placement, chronic obstructive pulmonary disease, history of pneumonia, low back pain, sciatica, hypothyroidism, smoking history. CONSULTS: Dr. Navarrete, postoperative medical management. HISTORY AND PHYSICAL EXAMINATION: Well documented in patient's chart. HOSPITAL COURSE: The patient was admitted on 01/21/2017 underwent total hip arthroplasty, tolerated the procedure well. There were no complications. She was transferred to the PACU postoperatively and later to the orthopedic floor for further care. She was given Ancef for antibiotic prophylaxis, ZA stockings, SCDs and Coumadin for DVT prophylaxis. INR was monitored daily and Coumadin dosed accordingly. Hemoglobin, hematocrit and vital signs were monitored during her hospital stay and remained stable. She developed some mild postoperative anemia, did not require any blood transfusions. There were no complications. By postoperative day 2, she was tolerating a regular diet; pain was controlled with oral pain medicine. She was participating in physical therapy and had no signs or symptoms of deep vein thrombosis. On postop day 2, she was transferred to a rehab facility. She was given printed discharge instructions including prescriptions for Tylenol and tramadol. Continue her home medications with the exception of Percocet which were stopped. Continue Coumadin for DVT prophylaxis, ZA stockings and physical therapy, weightbearing as tolerated. Follow up in 10-12 days or sooner if there are any problems or concerns.
== END 2017-01-23 17:00 | DRG 470 ==
LOC: C.ACU 06:24 → C.3E 06:40 → ENRESERV 11:52 → CANRESERV 11:52 → ENRESERV 12:08
PROVIDERS: ADMIT Orthopaedic Surgery Sports Medicine; ATTEND Orthopaedic Surgery Sports Medicine
PROC: 0SR90J9 Replacement of Right Hip Joint with Synthetic Substitute, Cemented, Open Approach (ICD-10-PCS; principal; 2017-01-21 08:55)
DX: M16.11 Unilateral primary osteoarthritis, right hip (principal); I50.22 Chronic systolic (congestive) heart failure; J96.11 Chronic respiratory failure with hypoxia; R01.1 Cardiac murmur, unspecified; I25.10 Atherosclerotic heart disease of native coronary artery without angina pectoris; I11.0 Hypertensive heart disease with heart failure; E78.5 Hyperlipidemia, unspecified; I48.0 Paroxysmal atrial fibrillation; J44.9 Chronic obstructive pulmonary disease, unspecified; F17.210 Nicotine dependence, cigarettes, uncomplicated; M54.40 Lumbago with sciatica, unspecified side; E03.9 Hypothyroidism, unspecified; Z87.01 Personal history of pneumonia (recurrent); Z87.891 Personal history of nicotine dependence; Z88.8 Allergy status to other drugs, medicaments and biological substances; Z79.82 Long term (current) use of aspirin; Z79.899 Other long term (current) drug therapy; Z90.49 Acquired absence of other specified parts of digestive tract; Z95.5 Presence of coronary angioplasty implant and graft; Z79.01 Long term (current) use of anticoagulants; Z99.81 Dependence on supplemental oxygen; Z82.49 Family history of ischemic heart disease and other diseases of the circulatory system